=== PATIENT | female | born 1970 | race American Indian/Alaskan Native ===

== ENCOUNTER 2019-07-01 16:12 | Emergency (ER) | payer MEDICAID ==
[2019-07-01 16:17] VITALS: BP 185/98
--- NOTE | 2019-07-01 16:36 | Event Note ---
ED Screening Note Date of service: 07/01/19 Time: 16:31 ED Screening Note: pt c/o chest pain since last night. Intermittent. Substernal. Onset while seating. Pain worse last night, not as bad now. +SOB lastnight, mild now. Mild nausea. +cough productive. +hx of CAD. Recently dx with asthma 1 mth ago. Pt believes her pain is likely from stress but her fiance wanted her to get checked. This initial assessment/diagnostic orders/clinical plan/treatment(s) is/are subject to change based on patients health status, clinical progression and re- assessment by fellow clinical providers in the ED. Further treatment and workup at subsequent clinical providers discretion. Patient/guardian urged not to elope from the ED as their condition may be serious if not clinically assessed and managed. Initial orders include: Cardiac work up cxr ASA
[2019-07-01] MEDS ORDERED: SODIUM CHLORIDE 0.9% 1000 ML 1,000 ML IV ONE (16:37)
[2019-07-01] MEDS ORDERED: ASPIRIN 325 MG TAB PO ONE (16:37)
[2019-07-01 16:56] LABS: Basophils # (Auto) 0.1 K/mm3 (0.0-0.1); Basophils % (Auto) 0.9 % (0.0-1.8); Eosinophils # (Auto) 0.2 K/mm3 (0.0-0.4); Eosinophils % (Auto) 2.1 % (0.0-4.3); Hematocrit 38.1 % (30.3-42.9); Hemoglobin 12.5 gm/dl (10.1-14.3); Lymphocytes # (Auto) 3.2 K/mm3 (1.2-5.4); Lymphocytes % (Auto) 36.4 % (13.4-35.0); Mean Corpuscular HGB Conc 33 % (30-34); Mean Corpuscular Volume 86 fl (79-97); Monocytes # (Auto) 0.7 K/mm3 (0.0-0.8); Monocytes % (Auto) 8.1 % (0.0-7.3); Platelet Count 372 K/mm3 (140-440); Red Blood Count 4.44 M/mm3 (3.65-5.03); Red Cell Distribution Width 14.4 % (13.2-15.2)
--- NOTE | 2019-07-01 17:23 | XRay Report ---
CHEST 2 VIEWS INDICATION / CLINICAL INFORMATION: Chest Pain. COMPARISON: None available. FINDINGS: SUPPORT DEVICES: None. HEART / MEDIASTINUM: Mild cardiac enlargement with left ventricular configuration. LUNGS / PLEURA: No significant pulmonary or pleural abnormality. No pneumothorax. ADDITIONAL FINDINGS: No significant additional findings. IMPRESSION: 1. Mild cardiomegaly, no acute lung disease. Signer Name: Ellis Kaufman MD Signed: 07/01/2019 5:18 PM Workstation Name: [id number]
[2019-07-01 17:26] LABS: Albumin 3.6 g/dL (3.9-5); BUN/Creatinine Ratio 21; Blood Urea Nitrogen 15 mg/dL (7-17); Calcium 9.1 mg/dL (8.4-10.2); Hemolysis Index 135
[2019-07-01 17:29] LABS: Alanine Aminotransferase 9 units/L (7-56)
== END 2019-07-01 22:36 | disposition left against medical advice (07) ==
LOC: ED 16:12
DX: R07.89 Other chest pain (principal); Z53.21 Procedure and treatment not carried out due to patient leaving prior to being seen by health care provider
CPT/HCPCS: 36415; 71046; 80053; 84484; 85025; 93005; 93010

== ENCOUNTER 2020-04-29 01:16 | Emergency (ER) | payer MEDICAID ==
[2020-04-29 05:17] VITALS: BP 151/60
[2020-04-29] MEDS ORDERED: IBUPROFEN 600 MG TAB PO ONE (05:53)
[2020-04-29] MEDS ORDERED: CLINDAMYCIN 300 MG CAP PO ONE (05:53)
[2020-04-29] MEDS ORDERED: ONDANSETRON 4 MG ODT TAB PO ONE (05:53)
[2020-04-29] MEDS ORDERED: oxyCODONE /ACETAMINOPHEN 5-325MG TAB PO ONE (05:53)
[2020-04-29] MEDS ORDERED: SULFAMETHOXAZOLE/TRIMETHOPRIM 800/160MG DS TAB PO ONE (05:53)
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
== END 2020-04-29 06:45 | disposition home or self-care (01) ==
LOC: ED 01:16
DX: L03.311 Cellulitis of abdominal wall (principal); L02.211 Cutaneous abscess of abdominal wall; I25.2 Old myocardial infarction; F12.10 Cannabis abuse, uncomplicated; Z79.899 Other long term (current) drug therapy; Z88.0 Allergy status to penicillin; Z88.6 Allergy status to analgesic agent; Z86.73 Personal history of transient ischemic attack (TIA), and cerebral infarction without residual deficits
CPT/HCPCS: 99283; Q0162

== ENCOUNTER 2020-08-04 07:57 | Observation (INO) | payer MEDICAID ==
[2020-08-04] MEDS ORDERED: traMADol 50 MG TAB PO ONE (10:34)
[2020-08-04] MEDS ORDERED: hydrALAZINE 25 MG TAB PO ONE (10:34)
[2020-08-04 11:39] LABS: Basophils # (Auto) 0.1 K/mm3 (0.0-0.1); Basophils % (Auto) 0.7 % (0.0-1.8); Eosinophils # (Auto) 0.3 K/mm3 (0.0-0.4); Eosinophils % (Auto) 3.3 % (0.0-4.3); Hematocrit 37.6 % (30.3-42.9); Hemoglobin 12.6 gm/dl (10.1-14.3); Lymphocytes # (Auto) 2.9 K/mm3 (1.2-5.4); Lymphocytes % (Auto) 35.9 % (13.4-35.0); Mean Corpuscular HGB Conc 33 % (30-34); Mean Corpuscular Volume 85 fl (79-97); Monocytes # (Auto) 0.6 K/mm3 (0.0-0.8); Platelet Count 328 K/mm3 (140-440); Red Blood Count 4.41 M/mm3 (3.65-5.03); Red Cell Distribution Width 14.7 % (13.2-15.2)
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
[2020-08-04 11:54] LABS: INR 0.93 (0.87-1.13)
[2020-08-04 11:55] LABS: Partial Thromboplastin Time 36.5 Sec. (24.2-36.6)
[2020-08-04 12:02] LABS: Alanine Aminotransferase 12 units/L (7-56); Blood Urea Nitrogen 14 mg/dL (7-17); Calcium 9.7 mg/dL (8.4-10.2); Hemolysis Index 3
[2020-08-04 12:07] LABS: BUN/Creatinine Ratio 20
--- NOTE | 2020-08-04 12:09 | Cat Scan Report ---
. CT head/brain wo con INDICATION / CLINICAL INFORMATION: 50 years Female; MAIN. TECHNIQUE: Routine CT head without contrast. All CT scans at this location are performed using CT dos e reduction for ALARA by means of automated exposure control. COMPARISON: None. FINDINGS: BRAIN / INTRACRANIAL CONTENTS: No acute hemorrhage, mass effect, midline shift, hydrocephalus, or acu te, large territorial infarct. No signs of significant atrophy or chronic infarct. No significant whi te matter abnormality seen. CRANIOCERVICAL JUNCTION: No significant abnormality. ORBITS: No significant abnormality of visualized orbits. SINUSES / MASTOIDS: No significant abnormality in the visualized paranasal sinuses or mastoid air almita ls. ADDITIONAL FINDINGS: None. IMPRESSION: 1. No focal mass, hemorrhage, hydrocephalus, or acute, large territorial infarct. Signer Name: Francisco Javier Dupree MD, III Signed: 08/04/2020 12:05 PM Workstation Name: [id number]
[2020-08-04] MEDS ORDERED: dexAMETHasone 4 MG/ML VIAL IM ONE (12:13)
[2020-08-04] MEDS ORDERED: GABAPENTIN 300 MG CAP PO ONE (12:13)
[2020-08-04] MEDS ORDERED: KETOROLAC 60 MG/2 ML INJ IM ONE (12:13)
--- NOTE | 2020-08-04 13:04 | Consultation ---
History of Present Illness Consult date: 08/04/20 Medications and Allergies Allergies Allergy/AdvReac Type Severity Reaction Status Date / Time morphine Allergy Unknown Verified 07/01/19 16:25 Penicillins Allergy Hives Verified 07/01/19 16:25 Home Medications Medication Instructions Recorded Confirmed Last Taken Type Clindamycin [Clindamycin CAP] 300 mg PO Q8HR #60 capsule 04/29/20 Unknown Rx Ibuprofen [Motrin] 800 mg PO Q8HR PRN #30 tablet 04/29/20 Unknown Rx Mupirocin [Bactroban 2% OINT] 1 applic TP TID #1 tube 04/29/20 Unknown Rx Ondansetron [Zofran Odt] 4 mg PO Q6HR PRN #15 tab.rapdis 04/29/20 Unknown Rx Sulfamethoxazole/Trimethoprim 1 each PO Q12H #20 tablet 04/29/20 Unknown Rx [Bactrim DS TAB] traMADoL [Ultram] 50 mg PO Q6HR PRN #12 tablet 04/29/20 Unknown Rx Physical Examination - Vital Signs Vital Signs: Vital Signs Temp Pulse Resp BP Pulse Ox 97.5 F L 64 24 195/117 100 08/04/20 08:02 08/04/20 08:02 08/04/20 08:02 08/04/20 08:02 08/04/20 08:02 Results - Laboratory Findings CBC and BMP: 08/04/20 11:10 08/04/20 11:10 Abnormal Lab Findings: Abnormal Labs 08/04/20 11:10 Lymph % (Auto) 35.9 H Assessment and Plan [facility] Tele[facility] Consult Services Stat Consult Date of Service: 08/04/2020 12:19:03 Impression: M50.1 - Cervical disc disorder with radiculopathy Comments/Sign-Out: Suspect cervical radiculopathy, but rule out stroke due to contralateral leg symptoms and prior history of stroke, not on secondary prevention therapy. CT HEAD: Showed No Acute Hemorrhage or Acute Core Infarct Metrics: [facility] Notification Time: 08/04/2020 12:16:49 Stamp Time: 08/04/2020 12:19:03 Callback Response Time: 08/04/2020 12:31:00 Video Start Time: 08/04/2020 12:47:00 Video End Time: 08/04/2020 12:59:00 Our recommendations are outlined below. Recommendations: Initiate Aspirin 81 MG Daily Imaging Studies: MRI Head and MRI C-spine, no contrast OT evaluation PT evaluation Outpatient LUE and RLE EMG Disposition: Neurology Follow Up Recommended Sign Out: Discussed with Emergency Department Provider ------- Chief Complaint: left arm numbness and pain History of Present Illness: Patient is a 50 year old Female. Left handed, prior stroke affecting right leg, not on ASA. For the past 3 days left arm numbness and burning sensation, today also weakness, unable to drive. Right leg pain acute, on chronic right leg weakness from stroke. HTN and anxiety. Difficult historian Past Medical History: Hypertension Stroke Anticoagulant use: No Antiplatelet use: No Examination: BP(184/66), Pulse(59), Blood Glucose(91) 1A: Level of Consciousness - Alert; keenly responsive + 0 1B: Ask Month and Age - Both Questions Right + 0 1C: Blink Eyes & Squeeze Hands - Performs Both Tasks + 0 2: Test Horizontal Extraocular Movements - Normal + 0 3: Test Visual Chand - No Visual Loss + 0 4: Test Facial Palsy (Use Grimace if Obtunded) - Normal symmetry + 0 5A: Test Left Arm Motor Drift - No Drift for 10 Seconds + 0 5B: Test Right Arm Motor Drift - No Drift for 10 Seconds + 0 6A: Test Left Leg Motor Drift - No Drift for 5 Seconds + 0 6B: Test Right Leg Motor Drift - Drift, but doesn't hit bed + 1 7: Test Limb Ataxia (FNF/Heel-Macdonald) - No Ataxia + 0 8: Test Sensation - Mild-Moderate Loss: Less Sharp/More Dull + 1 9: Test Language/Aphasia - Normal; No aphasia + 0 10: Test Dysarthria - Normal + 0 11: Test Extinction/Inattention - No abnormality + 0 NIHSS Score: 2 Patient/Family was informed the Neurology Consult would happen via TeleHealth consult by way of interactive audio and video telecommunications and consented to receiving care in this manner. Dr Aurora Woodward [facility] Case [id number]
[2020-08-04] MEDS ORDERED: METOCLOPRAMIDE 10 MG TAB PO PRN (13:23)
[2020-08-04] MEDS ORDERED: ACETAMINOPHEN 325 MG TAB PO PRN (13:23)
[2020-08-04] MEDS ORDERED: ONDANSETRON 4 MG/2 ML INJ IV PRN (13:23)
[2020-08-04] MEDS ORDERED: MAGNESIUM HYDROXIDE (MOM) ORAL LIQD UDC PO PRN (13:23)
[2020-08-04] MEDS ORDERED: PROMETHAZINE 25 MG RECT SUPP PR PRN (13:23)
--- NOTE | 2020-08-04 13:23 | History and Physical Report ---
History of Present Illness Chief complaint: My left arm is numb and tingly History of present illness: 50 YO Female with Nicotine Dependence, Obesity Hypoventilation Syndrome, RI, CVA RHP, ETOH Dependence presents to ED for evaluation. Patient states that she was in her usual state of health at bedtime which was around 2100 hrs. Patient states that she has experienced weakness and tingling in her left arm over the past 4 days with persistent symptoms over the same timeframe. Patient reports that symptoms have not improved over the last 4 days. Patient transported to [facility] via private vehicle for further care and evaluation of the aforementioned symptoms. Patient seen and evaluated in the emergency department. All lab and imaging studies reviewed. A code stroke was called upon arrival to the emergency department. Teleneurology consulted. Patient found to have neurologic deficit and initiated on CVA protocol. Patient placed in observation status and admitted to the medical floor and initiated on CVA protocol. Patient found to be outside the therapeutic window for TPA as per neurology service. P atient denies fever, chills, chest pain, palpitations, productive cough, skin rash, recent ill contact, or known exposure to COVID-19. No prior admission for review. No medication listed at time of admission for reconciliation. Past History Past Medical History: acute RI, stroke, other (See HPI) Past Surgical History: No surgical history Social history: single, smoking, alcohol abuse Family history: hypertension Medications and Allergies Allergies Allergy/AdvReac Type Severity Reaction Status Date / Time morphine Allergy Unknown Verified 07/01/19 16:25 Penicillins Allergy Hives Verified 07/01/19 16:25 Home Medications Medication Instructions Recorded Confirmed Last Taken Type Clindamycin [Clindamycin CAP] 300 mg PO Q8HR #60 capsule 04/29/20 Unknown Rx Ibuprofen [Motrin] 800 mg PO Q8HR PRN #30 tablet 04/29/20 Unknown Rx Mupirocin [Bactroban 2% OINT] 1 applic TP TID #1 tube 04/29/20 Unknown Rx Ondansetron [Zofran Odt] 4 mg PO Q6HR PRN #15 tab.rapdis 04/29/20 Unknown Rx Sulfamethoxazole/Trimethoprim 1 each PO Q12H #20 tablet 04/29/20 Unknown Rx [Bactrim DS TAB] traMADoL [Ultram] 50 mg PO Q6HR PRN #12 tablet 04/29/20 Unknown Rx Review of Systems Constitutional: no weight loss, no weight gain, no fever, no chills Ears, nose, mouth and throat: no ear pain, no ear discharge, no nasal congestion Breasts: no change in shape, no swelling, no mass Cardiovascular: no orthopnea, no palpitations, no edema, no lightheadedness Respiratory: no cough, no cough with sputum, no hemoptysis, no dyspnea on exertion Gastrointestinal: no abdominal pain, no nausea, no vomiting, no diarrhea, no constipation, no change in bowel habits Genitourinary Female: no pelvic pain, no flank pain, no dysuria, no urinary frequency Rectal: no pain, no incontinence, no bleeding Musculoskeletal: no neck stiffness, no neck pain, no shooting arm pain, no arm numbness/tingling, no low back pain, no leg numbness/tingling Integumentary: no rash, no pruritis, no redness, no sores, no jaundice Neurological: weakness, numbness, tingling, no seizures, no syncope, no tremors Psychiatric: no anxiety, no sleep disturbances, no insomnia, no hypersomnia, no change in appetite Endocrine: no cold intolerance, no excessive thirst, no polydipsia, no polyuria, no nocturia Hematologic/Lymphatic: no easy bleeding, no lymphadenopathy Allergic/Immunologic: no allergic rhinitis, no wheezing, no persistent infections, no anaphylaxis Exam - Constitutional Vitals: Temp Pulse Resp BP Pulse Ox 97.5 F L 59 L 18 184/66 100 08/04/20 08:02 08/04/20 10:51 08/04/20 10:51 08/04/20 10:51 08/04/20 10:51 General appearance: Present: mild distress, obese - EENT Eyes: Present: PERRL ENT: hearing intact, clear oral mucosa - Neck Neck: Present: supple, normal ROM - Respiratory Respiratory effort: normal Respiratory: bilateral: CTA - Cardiovascular Heart Sounds: Present: S1 & S2. Absent: rub, click - Extremities Extremities: pulses symmetrical, No edema Peripheral Pulses: within normal limits - Abdominal General gastrointestinal: Present: soft, non-tender, non-distended, normal bowel sounds Female genitourinary: Present: normal - Integumentary Integumentary: Present: clear, warm, dry - Musculoskeletal Musculoskeletal: left sided weakness - Psychiatric Psychiatric: appropriate mood/affect, intact judgment & insight - Neurologic Neurologic: CNII-XII intact, moves all extremities Results - Labs CBC & Chem 7: 08/04/20 11:10 08/04/20 11:10 Labs: Abnormal lab results 08/04/20 Range/Units 11:10 Lymph % (Auto) 35.9 H (13.4-35.0) % Assessment and Plan - Patient Problems (1) CVA (cerebral vascular accident) Current Visit: Yes Status: Acute Qualifiers: Laterality of affected vessel: left Plan to address problem: CVA protocol: CT head, echocardiogram, neuro check, physical therapy consulted, Occupational Therapy consulted, antiplatelet therapy, lipid panel, statin therapy, teleneurology consulted in ED. (2) Right hemiparesis Current Visit: Yes Status: Acute Plan to address problem: Physical therapy consulted, supportive care (3) Obesity hypoventilation syndrome Current Visit: Yes Status: Acute Plan to address problem: Supplemental oxygen, pulse oximetry, nebulizer therapy, noninvasive positive pressure ventilation as clinically indicated, balanced diet, increase physical activity at discharge, outpatient pulmonary follow-up for sleep study. (4) Nicotine dependence Current Visit: Yes Status: Acute Qualifiers: Nicotine product type: cigarettes Substance use status: in withdrawal Qualified Code(s): F17.213 - Nicotine dependence, cigarettes, with withdrawal Plan to address problem: Smoking cessation counseling, supportive care, behavior change counseling, +15 minutes (5) Alcohol dependence Current Visit: Yes Status: Acute Qualifiers: Substance use status: uncomplicated Qualified Code(s): F10.20 - Alcohol dependence, uncomplicated Plan to address problem: Thiamine, folic acid, multivitamin daily, CIWA protocol. (6) DVT prophylaxis Current Visit: Yes Status: Acute Plan to address problem: SCD to bilateral lower extremities while in bed, patient is ambulatory.
--- NOTE | 2020-08-04 15:58 | Vascular Lab Report ---
Bilateral Carotid Doppler Ultrasound INDICATION : stroke TECHNIQUE: Grayscale and color Doppler imaging performed through the neck. COMPARISON: None FINDINGS: Right: There is mild atherosclerotic disease in the carotid bulb extending into the proximal ICA. P eak systolic velocity in the CCA is 64 cm/s. Peak systolic velocity in the proximal ICA is 96 cm/s wi th end-diastolic velocity of 25 cm/s. ICA to CCA ratio is less than 2. There is antegrade flow in th e ECA and the vertebral artery. Left: There is no significant atherosclerotic disease. Peak systolic velocity in the CCA is 80 cm/s. Peak systolic velocity in the proximal ICA is 105 cm/s with end-diastolic velocity of 39 cm/s. ICA to CCA ratio is less than 2. There is antegrade flow in the ECA and the vertebral artery. IMPRESSION: No hemodynamically significant stenosis by NASCET criteria. Signer Name: Jerald Walton MD Signed: 08/04/2020 3:54 PM Workstation Name: [id number]
[2020-08-04] MEDS ORDERED: LORazepam 2 MG/ML VIAL IV PRN (16:22)
[2020-08-04] MEDS: MULTIVITAMINS ,THERAPEUTIC TAB PO SCH (17:12)
[2020-08-04] MEDS: THIAMINE 100 MG TAB PO SCH (17:12)
[2020-08-04] MEDS: FOLIC ACID 1 MG TAB PO SCH (17:12)
[2020-08-05 06:26] LABS: Chol/HDL Ratio 2.58 %
[2020-08-05] MEDS ORDERED: ASPIRIN 325 MG TAB PO SCH (10:00)
[2020-08-05] MEDS: MULTIVITAMINS ,THERAPEUTIC TAB PO SCH (10:19)
[2020-08-05] MEDS: FOLIC ACID 1 MG TAB PO SCH (10:19)
[2020-08-05] MEDS: THIAMINE 100 MG TAB PO SCH (10:20)
[2020-08-05 12:10] VITALS: BP 188/91
== END 2020-08-05 16:44 | disposition left against medical advice (07) ==
LOC: ED 07:57 → 3A 13:23 → 4A 21:12
PROVIDERS: ADMIT Internal Medicine; ATTEND Internal Medicine
DX: I63.9 Cerebral infarction, unspecified (principal); G81.91 Hemiplegia, unspecified affecting right dominant side; E66.2 Morbid (severe) obesity with alveolar hypoventilation; I25.2 Old myocardial infarction; M50.10 Cervical disc disorder with radiculopathy, unspecified cervical region; F17.213 Nicotine dependence, cigarettes, with withdrawal; F10.20 Alcohol dependence, uncomplicated; Z79.899 Other long term (current) drug therapy; Z88.0 Allergy status to penicillin; Z88.5 Allergy status to narcotic agent; Z68.41 Body mass index [BMI] 40.0-44.9, adult
CPT/HCPCS: 36415; 70450; 80053; 80061; 85025; 85610; 85730; 93005; 93306; 93880; 96372; 97162; 97165; 99285; G0378; J1100; J1885